=== PATIENT | female | born 1990 | race Native Hawaiian/Other Pacific Islander ===

== ENCOUNTER 2017-01-31 10:29 | Emergency (ER) | payer OTHER ==
[2017-01-31 10:39] VITALS: TEMP 98.3
[2017-01-31] MEDS ORDERED: Sodium Chloride 0.9% 1,000 ML IV STA ×2 (10:53→12:10)
--- NOTE | 2017-01-31 10:54 | ED PDOC ---
HPI: Abdomen Time Seen by Provider: 01/31/17 10:47 Chief Complaint (Nursing): Abdominal Pain Chief Complaint (Provider): Abdominal Pain History Per: Patient, Family History/Exam Limitations: no limitations Onset/Duration Of Symptoms: Hrs Current Symptoms Are (Timing): Still Present Severity: Moderate Location Of Pain/Discomfort: Diffuse Quality Of Discomfort: "Pain" Associated Symptoms: Nausea, Vomiting, Diarrhea Exacerbating Factors: None Alleviating Factors: None Additional Complaint(s): Patient is a 26 year old female brought to ED by mother for multiple episodes of vomiting and diarrhea that began around midnight. Get near syncope with it. As per mother, patient has a history of similar episodes, evaluated in multiple hospitals but different doctors with no diagnosis. Denies any new foods , medication or recent illness. Denies chest pain, SOB, fever or headache. Episodes ongoing for years that come on randomly. Past Medical History Reviewed: Historical Data, Nursing Documentation, Vital Signs Vital Signs: Last Vital Signs Temp 98.3 F 01/31/17 10:38 Pulse 85 01/31/17 10:59 Resp 20 01/31/17 10:59 BP 120/61 01/31/17 10:59 Pulse Ox 98 01/31/17 11:02 - Medical History Other PMH: IBS - Surgical History Surgical History: No Surg Hx - Family History Family History: States: Unknown Family Hx - Living Arrangements Living Arrangements: With Family - Social History Current smoker - smoking cessation education provided: No Alcohol: None Drugs: Denies - Allergies Allergies/Adverse Reactions: Allergies Allergy/AdvReac Type Severity Reaction Status Date / Time No Known Allergies Allergy Verified 01/31/17 10:59 Review of Systems ROS Statement: Except As Marked, All Systems Reviewed And Found Negative Constitutional: Positive for: Weakness (generalized). Negative for: Fever Cardiovascular: Negative for: Chest Pain Respiratory: Negative for: Shortness of Breath Gastrointestinal: Positive for: Nausea, Vomiting, Abdominal Pain, Diarrhea. Negative for: Hematochezia, Hematemesis Musculoskeletal: Negative for: Neck Pain Neurological: Positive for: Weakness Physical Exam - Reviewed Nursing Documentation Reviewed: Yes Vital Signs Reviewed: Yes - Physical Exam Appears: Positive for: Non-toxic, Uncomfortable Skin: Positive for: Normal Color, Warm. Negative for: Rash Eye Exam: Positive for: Normal appearance, EOMI, PERRL ENT: Positive for: Normal ENT Inspection. Negative for: Tonsillar Exudate Neck: Positive for: Normal, Painless ROM, Supple Cardiovascular/Chest: Positive for: Regular Rate, Rhythm. Negative for: Murmur Respiratory: Positive for: Normal Breath Sounds. Negative for: Respiratory Distress Gastrointestinal/Abdominal: Positive for: Soft, Tenderness (mild epigastric). Negative for: Distended, Guarding, Rebound Back: Positive for: Normal Inspection. Negative for: L CVA Tenderness, R CVA Tenderness Extremity: Positive for: Normal ROM. Negative for: Tenderness, Pedal Edema Neurologic/Psych: Positive for: Alert, ring facer II-XII, Oriented. Negative for: Motor/Sensory Deficits - Laboratory Results Result Diagrams: 01/31/17 11:09 01/31/17 11:09 Interpretation Of Abn Labs: no acute - ECG O2 Sat by Pulse Oximetry: 98 (RA) Pulse Ox Interpretation: Normal Medical Decision Making Medical Decision Making: Time: Initial impression: Dehydration Initial plan: -- BMP -- Urine preg -- CBC -- NSF and Zofran Patient declined all testing, except basic blood work. States she has had imaging and blood work before, all without definitive results. Scribe Attestation: Documented by Lisa Cervantes acting as a scribe for Vic Morley MD MD Scribe Attestation: All medical record entries made by the Scribe were at my direction and personally dictated by me. I have reviewed the chart and agree that the record accurately reflects my personal performance of the history, physical exam, medical decision making, and the department course for this patient. I have also personally directed, reviewed, and agree with the discharge instructions and disposition. 1327: Stable. AAOx3. Pain free. Tolerated PO. Ambulating with no issues. Fu with pcp. Refusing all imaging and ekg. Disposition - Clinical Impression Clinical Impression: Vomiting, Diarrhea, Syncope - Patient ED Disposition Is Patient to be Admitted: No Counseled Patient/Family Regarding: Studies Performed, Diagnosis, Need For Followup - Disposition Referrals: [facility] [Outside] - 02/02/17 Disposition: Routine/Home Disposition Time: 13:00 Condition: STABLE Additional Instructions: Return if not better in 3 days. Instructions: Syncope (ED), Acute Nausea and Vomiting (ED), Acute Diarrhea (ED)
[2017-01-31 11:18] LABS: BASO % 0.1 % (0.0-2.0); EOS % 0.3 % (0.0-4.0); HEMATOCRIT 42.9 % (34.0-47.0); LYMPH # 0.7 K/uL (1.0-4.3); LYMPH % 6.7 % (20.0-40.0); MEAN CELL VOLUME 90.6 fl (81.0-99.0); MEAN CORPUSCULAR HEMOGLOBIN 30.6 pg (27.0-31.0); MEAN CORPUSCULAR HGB CONC 33.8 g/dL (33.0-37.0); MEAN PLATELET VOLUME 7.5 fl (7.2-11.7); MONO # 0.3 K/uL (0.0-0.8); MONO % 2.7 % (0.0-10.0); NEUT # 9.2 K/uL (1.8-7.0); NEUT % 90.2 % (50.0-75.0); PLATELET COUNT 271 K/uL (130-400); RED CELL DISTRIBUTION WIDTH 12.8 % (11.5-14.5); WHITE BLOOD COUNT 10.2 K/uL (4.8-10.8)
[2017-01-31 11:28] LABS: BLOOD UREA NITROGEN 13 mg/dl (7-17); CALCIUM 9.4 mg/dL (8.4-10.2); CARBON DIOXIDE 25 mmol/L (22-30); CHLORIDE 104 mmol/L (98-107); GFR AFRICAN-AMERICAN > 60; GLUCOSE,RANDOM 108 mg/dL (65-105); POTASSIUM 4.3 MMOL/L (3.6-5.0); SODIUM 140 mmol/l (132-148)
[2017-01-31 12:32] LABS: EOSINOPHIL 1 % (0-7); NEUTROPHIL 90 % (42-75); TOTAL CELLS COUNTED 100
[2017-01-31 14:16] VITALS: BP 122/52; PULSE 80; RESP 16; O2SAT 99
== END 2017-01-31 14:16 | disposition home or self-care (01) ==
LOC: H.ER 10:29
DX: R11.2 Nausea with vomiting, unspecified (principal); R19.7 Diarrhea, unspecified; R55 Syncope and collapse; E86.0 Dehydration; K58.9 Irritable bowel syndrome, unspecified